=== PATIENT | male | born 1965 | race Caucasian/White ===

== ENCOUNTER 2023-05-03 14:40 | Emergency (ER) | payer SELFPAY ==
[~2023-05-03] VITALS: Ht 177 cm; Wt 140.0 kg
--- NOTE | 2023-05-03 14:54 | ED General ---
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 Patient ran out of neb treatments and albuterol inhaler but yesterday his PCP has called in the prescription for it and patient has still not picked it up yet, saying he will pick it up today after leaving the ER. Denies fever and chills, cough, abdominal pain, chest pain, palpitations, nausea and vomiting, diarrhea. Allergies and Home Medications Allergies Coded Allergies: No Known Drug Allergies (Unverified , 05/03/23) Patient Home Medication List Home Medication List Reviewed: Yes Review of Systems Review of Systems Constitutional: no symptoms reported Respiratory: dyspnea on exertion Physical Exam Vital Signs Vital Signs - First Documented 05/03/23 15:12 Temp 36.6 Pulse 101 Resp 22 B/P (MAP) 177/90 (119) Pulse Ox 95 O2 Delivery Room Air Capillary Refill : Height, Weight, BMI Height: '" Weight: lbs. oz. kg; BMI Method: General Appearance: No Apparent Distress, WD/WN, Obese HEENT: PERRL/EOMI, Normal ENT Inspection Neck: Full Range of Motion Respiratory: Chest Non Tender, Normal Breath Sounds, No Accessory Muscle Use, No Respiratory Distress, Wheezing (Mild expiratory, occasional) Cardiovascular: Regular Rate, Rhythm, Other (Bilateral pitting edema of ankles 2+) Gastrointestinal: Normal Bowel Sounds, Non Tender, Soft Neurologic/Psychiatric: Alert, Oriented x3 Skin: Normal Color Progress/Results/Core Measures Suspected Sepsis SIRS Temperature: Pulse: Respiratory Rate: Laboratory Tests 05/03/23 14:55: White Blood Count 9.4 Blood Pressure / Mean: Laboratory Tests 05/03/23 14:55: Creatinine 0.76, INR Comment 1.0, Platelet Count 177, Total Bilirubin 0.3 Results/Orders Lab Results Laboratory Tests Test 05/03/23 14:45 05/03/23 14:55 Range/Units Urine Color YELLOW Urine Clarity CLEAR Urine pH 7.0 5-9 Urine Specific [place] 1.015 L 1.016-1.022 Urine Protein NEGATIVE NEGATIVE Urine Glucose (UA) NEGATIVE NEGATIVE Urine Ketones NEGATIVE NEGATIVE Urine Nitrite NEGATIVE NEGATIVE Urine Bilirubin NEGATIVE NEGATIVE Urine Urobilinogen 0.2 < = 1.0 MG/DL Urine Leukocyte Esterase NEGATIVE NEGATIVE Urine RBC (Auto) NEGATIVE NEGATIVE Urine RBC NONE /HPF Urine WBC RARE /HPF Urine Squamous Epithelial Cells RARE /HPF Urine Crystals NONE /LPF Urine Bacteria NEGATIVE /HPF Urine Casts PRESENT /LPF Urine Hyaline Casts RARE /LPF Urine Mucus SMALL H /LPF Urine Culture Indicated NO Urine Opiates Screen NEGATIVE NEGATIVE Urine Oxycodone Screen NEGATIVE NEGATIVE Urine Methadone Screen NEGATIVE NEGATIVE Urine Barbiturates Screen NEGATIVE NEGATIVE Ur Tricyclic Antidepressants Screen NEGATIVE NEGATIVE Urine Phencyclidine Screen NEGATIVE NEGATIVE Urine Amphetamines Screen NEGATIVE NEGATIVE Urine Methamphetamines Screen NEGATIVE NEGATIVE Urine Benzodiazepines Screen NEGATIVE NEGATIVE Urine Cocaine Screen NEGATIVE NEGATIVE Urine Cannabinoids Screen NEGATIVE NEGATIVE White Blood Count 9.4 4.3-11.0 10^3/uL Red Blood Count 4.61 4.30-5.52 10^6/uL Hemoglobin 14.1 13.3-17.7 g/dL Hematocrit 42 40-54 % Mean Corpuscular Volume 92 80-99 fL Mean Corpuscular Hemoglobin 31 25-34 pg Mean Corpuscular Hemoglobin Concent 33 32-36 g/dL Red Cell Distribution Width 12.6 10.0-14.5 % Platelet Count 177 130-400 10^3/uL Mean Platelet Volume 9.7 9.0-12.2 fL Immature Granulocyte % (Auto) 0 % Neutrophils (%) (Auto) 60 42-75 % Lymphocytes (%) (Auto) 32 12-44 % Monocytes (%) (Auto) 6 0-12 % Eosinophils (%) (Auto) 1 0-10 % Basophils (%) (Auto) 0 0-10 % Neutrophils # (Auto) 5.7 1.8-7.8 10^3/uL Lymphocytes # (Auto) 3.0 1.0-4.0 10^3/uL Monocytes # (Auto) 0.6 0.0-1.0 10^3/uL Eosinophils # (Auto) 0.1 0.0-0.3 10^3/uL Basophils # (Auto) 0.0 0.0-0.1 10^3/uL Immature Granulocyte # (Auto) 0.0 0.0-0.1 10^3/uL Prothrombin Time 13.0 12.2-14.7 SEC INR Comment 1.0 0.8-1.4 Activated Partial Thromboplast Time 28 24-35 SEC D-Dimer 0.63 H 0.00-0.49 UG/ML Sodium Level 139 135-145 MMOL/L Potassium Level 4.6 3.6-5.0 MMOL/L Chloride Level 102 98-107 MMOL/L Carbon Dioxide Level 27 21-32 MMOL/L Anion Gap 10 5-14 MMOL/L Blood Urea Nitrogen 13 7-18 MG/DL Creatinine 0.76 0.60-1.30 MG/DL Estimat Glomerular Filtration Rate 104 BUN/Creatinine Ratio 17 Glucose Level 125 H 70-105 MG/DL Calcium Level 9.0 8.5-10.1 MG/DL Corrected Calcium 9.2 8.5-10.1 MG/DL Magnesium Level 2.4 1.6-2.4 MG/DL Total Bilirubin 0.3 0.1-1.0 MG/DL Aspartate Amino Transf (AST/SGOT) 19 5-34 U/L Alanine Aminotransferase (ALT/SGPT) 16 0-55 U/L Alkaline Phosphatase 85 40-136 U/L Troponin I < 0.30 <0.30 NG/ML Pro-B-Type Natriuretic Peptide 72.9 <125.0 PG/ML Total Protein 7.1 6.4-8.2 GM/DL Albumin 3.7 3.2-4.5 GM/DL My Orders Orders - PEREZ HERRERA MD Continuous Ekg Monitoring (05/03/23 14:56) Ekg Tracing (05/03/23 14:56) Chest 1 View Ap/Pa Only (05/03/23 14:56) Cbc And Automated Diff (05/03/23 14:57) Comprehensive Metabolic Panel (05/03/23 14:57) Fibrin Degradation Products (05/03/23 14:57) Drug Screen Stat (Urine) (05/03/23 14:57) Magnesium (05/03/23 14:57) Protime With Inr (05/03/23 14:57) Partial Thromboplastin Time (05/03/23 14:57) Ua Culture If Indicated (05/03/23 14:57) Probnp Fs (05/03/23 14:57) Troponin I Fs (05/03/23 14:57) Ipratropium/Albuterol Inh Soln (Ipratrop (05/03/23 15:15) Methylprednisolone Sod Succ (Methylpredn (05/03/23 15:06) Svn Small Volume Nebulizer (05/03/23 15:06) Ct Angio Chest W (05/03/23 15:52) Ipratropium/Albuterol Inh Soln (Ipratrop (05/03/23 16:00) Svn Small Volume Nebulizer (05/03/23 15:52) Medications Given in ED Current Medications Medications Dose Ordered Sig/Yen Route Start Time Stop Time Status Last Admin Dose Admin Albuterol/ Ipratropium 3 ml ONCE ONCE INH 05/03/23 15:15 05/03/23 15:16 DC 05/03/23 15:15 3 ML Albuterol/ Ipratropium 3 ml ONCE ONCE INH 05/03/23 16:00 05/03/23 16:01 DC 05/03/23 16:06 3 ML Vital Signs/I&O 05/03/23 15:12 Temp 36.6 Pulse 101 Resp 22 B/P (MAP) 177/90 (119) Pulse Ox 95 O2 Delivery Room Air Capillary Refill : Progress Note : Progress Note 1. COPD EXACERBATION: - CXR: no acute findings, no cardiomegally or fluid in the lungs - CBC/CMP: normal - BNP: normal - Troponin: undetectable - Prednisone prescription 50 mg daily for 3 days - Duo neb x 2 and Solumedrol 125mg iv given in ER. Pt's symptoms resolved with this. - Use Albuterol inhaler and Nebulizer as needed and as prescribed by PCP - Advised to follow up with PCP within 7 days - Weight loss and diet control advised. Included COPD diet list with instructions. - Advised to take an additional 2 tablets of Lasix in the evening today. -The patient was seen in the ED, and treated appropriately to presentation at a specific point in time. Patient is informed that there is a possibility that disease and illness can evolve and change in acuity rapidly or slowly after patient is discharged from the ER. Precautionary advice given to the patient for immediate return to ER if symptoms worsen or do not resolve, and to seek emergency care sooner rather than later. Pt also advised on the importance of PCP follow up and compliance with management and follow up plan with PCP and/or specialist, as this is part of the management plan. Pt verbally expressed understanding. Departure Impression Primary Impression: COPD exacerbation Disposition: 01 HOME, SELF-CARE Condition: Improved Departure-Patient Inst. Referrals: TATA GORDON APRN (PCP) Primary Care Physician [facility] (Family) Primary Care Physician Patient Instructions: How to Use a Metered Dose Inhaler ED, How to Use a Nebulizer ED, COPD Diet Add. Discharge Instructions: - Prednisone prescription 50 mg daily for 3 days - Use Albuterol inhaler and Nebulizer as needed and as prescribed by PCP - Advised to follow up with PCP within 7 days - Weight loss and diet control advised. Included COPD diet list with instructions. - Advised to take an additional 2 tablets of Lasix in the evening today. All discharge instructions reviewed with patient and/or family. Voiced understanding. PEREZ HERRERA MD May 03, 2023 14:54
[2023-05-03] MEDS ORDERED: methylPREDNISolone INJ 125 MG VIAL IV STA (15:06)
[2023-05-03 15:12] VITALS: BP 177/90
[2023-05-03 15:13] LABS: BASOPHILS % (AUTO) 0 % (0-10); EOSINOPHILS # (AUTO) 0.1 10^3/uL (0.0-0.3); EOSINOPHILS % (AUTO) 1 % (0-10); HEMATOCRIT 42 % (40-54); HEMOGLOBIN 14.1 g/dL (13.3-17.7); LYMPHOCYTES % (AUTO) 32 % (12-44); MEAN CORPUSCULAR HEMOGLOBIN 31 pg (25-34); MEAN CORPUSCULAR HGB CONC 33 g/dL (32-36); MEAN CORPUSCULAR VOLUME 92 fL (80-99); MEAN PLATELET VOLUME 9.7 fL (9.0-12.2); MONOCYTES # (AUTO) 0.6 10^3/uL (0.0-1.0); MONOCYTES % (AUTO) 6 % (0-12); NEUTROPHILS # (AUTO) 5.7 10^3/uL (1.8-7.8); NEUTROPHILS % (AUTO) 60 % (42-75); PLATELET COUNT 177 10^3/uL (130-400); WHITE BLOOD COUNT 9.4 10^3/uL (4.3-11.0)
[2023-05-03 15:13] LABS: BILIRUBIN,URINE NEGATIVE (NEGATIVE); CLARITY,URINE CLEAR; COLOR,URINE YELLOW; GLUCOSE, URINE (UA) NEGATIVE (NEGATIVE); KETONES,URINE NEGATIVE (NEGATIVE); LEUKOCYTE ESTERASE ,URINE NEGATIVE (NEGATIVE); NITRITE,URINE NEGATIVE (NEGATIVE); PROTEIN,URINE NEGATIVE (NEGATIVE)
[2023-05-03] MEDS ORDERED: RT-Ipratropium/Albuterol NEB 3 ML VIAL INH ONE ×2 (15:15→16:00)
[2023-05-03 15:26] LABS: BACTERIA,URINE NEGATIVE /HPF; SQUAMOUS EPITHELIAL CELL,UR RARE /HPF; WBC,URINE RARE /HPF
[2023-05-03 15:26] LABS: POTASSIUM 4.6 MMOL/L (3.6-5.0); SODIUM 139 MMOL/L (135-145)
[2023-05-03 15:27] LABS: HYALINE CASTS, URINE RARE /LPF
[2023-05-03 15:27] LABS: BILIRUBIN,TOTAL 0.3 MG/DL (0.1-1.0); CARBON DIOXIDE 27 MMOL/L (21-32); CHLORIDE 102 MMOL/L (98-107); MAGNESIUM 2.4 MG/DL (1.6-2.4); TOTAL PROTEIN 7.1 GM/DL (6.4-8.2)
[2023-05-03 15:28] LABS: AMPHETAMINE SCREEN, URINE NEGATIVE (NEGATIVE); BARBITURATE SCREEN URINE NEGATIVE (NEGATIVE); CANNABINOID SCREEN, URINE NEGATIVE (NEGATIVE); COCAINE SCREEN URINE NEGATIVE (NEGATIVE); METHADONE STAT NEGATIVE (NEGATIVE); OPIATE SCREEN URINE NEGATIVE (NEGATIVE); OXYCODONE STAT NEGATIVE (NEGATIVE); TRICYCLIC ANTIDEPRESSANTS SCRE NEGATIVE (NEGATIVE)
[2023-05-03 15:34] LABS: ALANINE AMINOTRANSFERASE 16 U/L (0-55); ALBUMIN 3.7 GM/DL (3.2-4.5); ALKALINE PHOSPHATASE 85 U/L (40-136); BUN/CREATININE RATIO 17; CREATININE SERUM 0.76 MG/DL (0.60-1.30); GFR ESTIMATED 104; GLUCOSE 125 MG/DL (70-105)
[2023-05-03 15:43] LABS: FIBRIN DEGRADATION PRODUCTS 0.63 UG/ML (0.00-0.49)
--- NOTE | 2023-05-03 15:46 | Diagnostic Imaging Report ---
INDICATION: Shortness of breath. EXAM: Portable chest at 3:16 PM Heart size and pulmonary vascularity are normal. The lungs are clear. There are no effusions or pneumothoraces. IMPRESSION: No acute abnormalities in the chest. Dictated by: Dictated on workstation # [id number]
[2023-05-03] MEDS ORDERED: PRD50T PO (16:41)
== END 2023-05-03 16:40 | disposition home or self-care (01) ==
LOC: EDUNIT# 14:40 → ER FS 14:42
DX: J44.1 Chronic obstructive pulmonary disease with (acute) exacerbation (principal); E66.9 Obesity, unspecified; Z68.41 Body mass index [BMI] 40.0-44.9, adult; Z91.148 Patient's other noncompliance with medication regimen for other reason
CPT/HCPCS: 36415; 71045; 80053; 80306; 81000; 83735; 83880; 84484; 85025; 85379; 85610; 85730; 93005; 96374